=== PATIENT | male | born 1950 | race Caucasian/White ===

== ENCOUNTER 2018-05-17 11:08 | Inpatient (IN) | payer MEDICARE ==
[2018-05-17 11:58] LABS: Basophils # (A) 0.1 k/uL (0-0.2); Basophils % (A) 1 %; Eosinophils # (A) 0.1 k/uL (0-0.7); Eosinophils % (A) 1 %; HCT 52.8 % (39.0-53.0); HGB 17.5 gm/dL (13.0-17.5); Lymphocytes # (A) 2.3 k/uL (1.0-4.8); Lymphocytes % (A) 22 %; MCH 30.6 pg (25.0-35.0); MCHC 33.2 g/dL (31.0-37.0); MCV 92.3 fL (80.0-100.0); Mean Platelet Volume 8.4; Monocytes # (A) 0.5 k/uL (0-1.0); Monocytes % (A) 5 %; Neutrophils # (A) 7.5 k/uL (1.3-7.7); Neutrophils % (A) 70 %; Platelet Count 108 k/uL (150-450); RBC 5.72 m/uL (4.30-5.90); RDW 13.2 % (11.5-15.5); WBC 10.7 k/uL (3.8-10.6)
--- NOTE | 2018-05-17 12:02 | ED ---
General Adult HPI - General Chief complaint: Chest Pain Stated complaint: CHEST PAIN, LEG HEAVY, DIZZINESS Source: patient, RN notes reviewed, old records reviewed Mode of arrival: ambulatory Limitations: no limitations - History of Present Illness Initial comments: 68-year-old male patient with past medical history of osteoarthritis presents to ED after seeing his primary care physician today, Dr. Pettit. Patient states that the morning of 05/16 he woke up with chest pain. Patient states that the chest pain was located under his left pectoral and substernal region and felt like a pressure - pain did not radiate. The pressure improved with rest. Patient also states he had some shortness of breath. He describes the shortness of breath as he was, "breathing, but I felt as if I could not get enough air in." Patient also states that his right leg felt "heavy" but he was able to ambulate. Patient states that the symptoms lasted for approximately 4 hours. And afterwards he was able to continue with his day, activities of daily life. The symptoms have not returned. Patient states that he went to see his primary care physician today. The PCP was concerned about the possibility of a pulmonary embolism. Patient was sent to hospital with order of a CT pulmonary angiography, kidney function tests. Patient states that he is currently asymptomatic - not having active chest pain or SOB. Systemic: Pt denies fatigue, myalgia, fever/chills, rash. Pt denies weakness, night sweats, weight loss. Neuro: Pt denies headache, visual disturbances, syncope or pre-syncope. HEENT: Pt denies ocular discharge or irritation, otalgia, rhinorrhea, pharyngitis or notable lymphadenopathy. Abdominal/GI: Pt denies abdominal pain, n/v/d. : Pt denies dysuria, burning w/ urination, frequency/urgency. Denies new onset urinary or bowel incontinence. MSK: Pt denies myalgia, loss of strength or function in extremities. - Related Data Home Medications Medication Instructions Recorded Confirmed Meloxicam [Mobic] 15 mg PO DAILY 08/26/14 05/17/18 Allergies Allergy/AdvReac Type Severity Reaction Status Date / Time No Known Allergies Allergy Verified 05/17/18 12:09 Review of Systems ROS Statement: Those systems with pertinent positive or pertinent negative responses have been documented in the HPI. ROS Other: All systems not noted in ROS Statement are negative. Past Medical History Past Medical History: Osteoarthritis (OA) History of Any Multi-Drug Resistant Organisms: None Reported Past Surgical History: Hernia Repair Additional Past Surgical History / Comment(s): fran cataract- with lens implants , colonoscopy, torn retina repaired right eye Past Anesthesia/Blood Transfusion Reactions: No Reported Reaction Past Psychological History: Anxiety Smoking Status: Former smoker Past Alcohol Use History: None Reported Past Drug Use History: None Reported - Past Family History Father Family Medical History: No Reported History Mother Family Medical History: Cancer Additional Family Medical History / Comment(s): Mother of lung cancer. General Exam - General Exam Comments Initial Comments: Constitutional: NAD, AOX3, Pt has pleasant affect. HEENT: NC/AT, trachea midline, neck supple, no lymphadenopathy. Posterior pharynx non erythematous, without exudates. External ears appear normal, without discharge. Mucous membranes moist. Eyes PERRLA, EOM intact. There is no scleral icterus. No pallor noted. Cardiopulmonary: RRR, no murmurs, rubs or gallops, no JVD noted. Lungs CTAB in anterior and posterior garcia. No peripheral edema. Anterior chest wall nontender to palpation. Abdominal exam: Abdomen soft and non-distended. Abdomen non-tender to palpation in all 4 quadrants. Bowel sounds active in LLQ. No hepatosplenomegaly. Neuro: CN II-XII intact. MSK: Heel to toe walking intact. Psoas and quadricept strength 5/5 bilaterally. Patellar reflex and achillies 2/4 bilaterally. RLE slightly more edematous than left but patient states is at baseline secondary to an injury sustained approximately 30 years ago. Right lower extremity non-erythematous. Posterior tibialis and dorsalis pedis pulse +2 bilaterally. Posterior nontender to palpation bilaterally. Homans sign negative. Popliteal region nontender to palpation bilaterally. Limitations: no limitations Course Vital Signs 05/17/18 05/17/18 05/17/18 11:11 12:12 15:09 Temperature 97.4 F L Pulse Rate 98 78 78 Respiratory 20 Rate Blood Pressure 113/77 112/83 127/94 O2 Sat by Pulse 93 L 97 99 Oximetry 05/17/18 05/17/18 16:30 17:10 Temperature Pulse Rate 82 79 Respiratory 25 H Rate Blood Pressure 106/81 107/69 O2 Sat by Pulse 97 96 Oximetry Medical Decision Making - Medical Decision Making 68-year-old male patient presents to ED after having complained of chest pain, shortness of breath yesterday morning. Patient states that the symptoms had resolved and he feels as if he is at baseline now. Patient was seen by his PCP earlier this morning, sent to ED in order to receive CT pulmonary angiography. Patient physical exam did not reveal acute pathology. Cardiopulmonary exam within normal limitsregular rate and rhythm, lungs CTAP in anterior and posterior garcia, no peripheral edema or JVD. EKG did not reveal acute ischemia , no significant changes from old EKG. Laboratory investigations including, CBC , CMP, BNP, troponin were initiated. CT pulmonary angiography ordered. Patient started on oxygen and telemetry. Cardiac enzymes indicated elevated BNP , troponin, CK-MB. Patient was diagnosed with NSTEMI and started on heparin. CT pulmonary angiography displayed pulmonary emboli, no right heart strain. Spoke with pharmacist Germain Guillory who assisted in transitioning patient to appropriate high-dose heparin for PE. Pt was started on ACS protocol and admitted to ICU. Case discussed with Dr. Velez. - Lab Data Result diagrams: 05/17/18 11:01 05/17/18 11:01 Lab Results 05/17/18 05/17/18 05/17/18 Range/Units 11:01 11:01 11:01 WBC 10.7 H (3.8-10.6) k/uL RBC 5.72 (4.30-5.90) m/uL Hgb 17.5 (13.0-17.5) gm/dL Hct 52.8 (39.0-53.0) % MCV 92.3 (80.0-100.0) fL MCH 30.6 (25.0-35.0) pg MCHC 33.2 (31.0-37.0) g/dL RDW 13.2 (11.5-15.5) % Plt Count 108 L (150-450) k/uL Neutrophils % 70 % Lymphocytes % 22 % Monocytes % 5 % Eosinophils % 1 % Basophils % 1 % Neutrophils # 7.5 (1.3-7.7) k/uL Lymphocytes # 2.3 (1.0-4.8) k/uL Monocytes # 0.5 (0-1.0) k/uL Eosinophils # 0.1 (0-0.7) k/uL Basophils # 0.1 (0-0.2) k/uL PT (9.0-12.0) sec INR (<1.2) APTT (22.0-30.0) sec Sodium 143 (137-145) mmol/L Potassium 4.4 (3.5-5.1) mmol/L Chloride 108 H (98-107) mmol/L Carbon Dioxide 25 (22-30) mmol/L Anion Gap 10 mmol/L BUN 31 H (9-20) mg/dL Creatinine 1.17 (0.66-1.25) mg/dL Est GFR (CKD-EPI)AfAm 75 (>60 ml/min/1.73 sqM) Est GFR (CKD-EPI)NonAf 65 (>60 ml/min/1.73 sqM) Glucose 136 H (74-99) mg/dL Calcium 9.1 (8.4-10.2) mg/dL Magnesium 2.2 (1.6-2.3) mg/dL Total Bilirubin 1.1 (0.2-1.3) mg/dL AST 37 (17-59) U/L ALT 33 (21-72) U/L Alkaline Phosphatase 73 (38-126) U/L Total Creatine Kinase 205 H (55-170) U/L CK-MB (CK-2) 5.0 H (0.0-2.4) ng/mL CK-MB (CK-2) Rel Index 2.4 Troponin I 1.180 H* (0.000-0.034) ng/mL NT-Pro-B Natriuret Pep pg/mL Total Protein 7.7 (6.3-8.2) g/dL Albumin 4.5 (3.5-5.0) g/dL 05/17/18 05/17/18 Range/Units 11:01 11:01 WBC (3.8-10.6) k/uL RBC (4.30-5.90) m/uL Hgb (13.0-17.5) gm/dL Hct (39.0-53.0) % MCV (80.0-100.0) fL MCH (25.0-35.0) pg MCHC (31.0-37.0) g/dL RDW (11.5-15.5) % Plt Count (150-450) k/uL Neutrophils % % Lymphocytes % % Monocytes % % Eosinophils % % Basophils % % Neutrophils # (1.3-7.7) k/uL Lymphocytes # (1.0-4.8) k/uL Monocytes # (0-1.0) k/uL Eosinophils # (0-0.7) k/uL Basophils # (0-0.2) k/uL PT 10.8 (9.0-12.0) sec INR 1.1 (<1.2) APTT 24.4 (22.0-30.0) sec Sodium (137-145) mmol/L Potassium (3.5-5.1) mmol/L Chloride (98-107) mmol/L Carbon Dioxide (22-30) mmol/L Anion Gap mmol/L BUN (9-20) mg/dL Creatinine (0.66-1.25) mg/dL Est GFR (CKD-EPI)AfAm (>60 ml/min/1.73 sqM) Est GFR (CKD-EPI)NonAf (>60 ml/min/1.73 sqM) Glucose (74-99) mg/dL Calcium (8.4-10.2) mg/dL Magnesium (1.6-2.3) mg/dL Total Bilirubin (0.2-1.3) mg/dL AST (17-59) U/L ALT (21-72) U/L Alkaline Phosphatase (38-126) U/L Total Creatine Kinase (55-170) U/L CK-MB (CK-2) (0.0-2.4) ng/mL CK-MB (CK-2) Rel Index Troponin I (0.000-0.034) ng/mL NT-Pro-B Natriuret Pep 3260 pg/mL Total Protein (6.3-8.2) g/dL Albumin (3.5-5.0) g/dL Disposition Clinical Impression: NSTEMI (non-ST elevated myocardial infarction), Pulmonary embolism Disposition: ADMITTED IP TO THIS HOSP Condition: Good Decision Date: 05/17/18 Decision Time: 12:56 - Out of Hospital Transfer - Req. Specs Out of Hospital Transfer - Requested Specifics: Adult ICU (NSTEMI, PE)
[2018-05-17 12:07] LABS: Albumin 4.5 g/dL (3.5-5.0); Calcium 9.1 mg/dL (8.4-10.2); Magnesium 2.2 mg/dL (1.6-2.3); Potassium 4.4 mmol/L (3.5-5.1); Total Bilirubin 1.1 mg/dL (0.2-1.3); Total Protein 7.7 g/dL (6.3-8.2)
[2018-05-17 12:14] LABS: INR 1.1 (<1.2); Partial Thromboplastin Time 24.4 sec (22.0-30.0); Prothrombin Time 10.8 sec (9.0-12.0)
[2018-05-17 12:40] LABS: Troponin I 1.18 ng/mL (0.000-0.034)
[2018-05-17] MEDS ORDERED: NITROGLYCERIN SL TABS 0.4 MG TAB SUBLINGUAL PRN (12:46)
[2018-05-17] MEDS ORDERED: HEPARIN SODIUM,PORCINE 5,000 UNIT/ML 1 ML VIAL IV ONE ×2 (12:46→14:04)
[2018-05-17] MEDS ORDERED: ASPIRIN 81 MG PO STA (12:46)
[2018-05-17] MEDS ORDERED: HEPARIN SOD,PORK IN 0.45% NACL 25,000 UNIT in 0.45% NACL 1 500ML.BAG IV SCH (13:00)
--- NOTE | 2018-05-17 13:19 | CT ---
EXAMINATION TYPE: CT angio chest DATE OF EXAM: 05/17/2018 COMPARISON: None HISTORY: chest pain, RT leg weakness CT DLP: 399.5 mGycm CONTRAST: CT chest with contrast and 3D reconstruction with MIP imaging is performed with IV Contrast, patient injected with 100 mL of Isovue 300. Contrast-enhanced CT of the chest was performed through the course of the pulmonary arteries with myla g and mediastinal window settings submitted. 3D reconstruction with MIP imaging was also performed. PULMONARY ARTERIES: Moderate thrombus noted left lower lobe primary and secondary branches. A lesser extent thrombus is seen within the primary and secondary branches of the left upper lobe, right upper lobe and right lower lobe. No evidence for sagittal component. No evidence for right heart strain. LUNGS: Mild emphysematous changes noted. The lungs are clear and free of infiltrate. No evidence for atelectasis. No pulmonary nodule or mass is detected. No pleural effusion. MEDIASTINUM: Thoracic aorta is of normal caliber,however, evaluation is limited given timing of the contrast bolus. If there is concern for thoracic aortic pathology consider MARCELINO. Correlate clinicall y . The heart is not enlarged. No evidence for mediastinal mass. No mediastinal lymph nodes greater than 1cm. HILAR STRUCTURES: No evidence for mass. No hilar lymph nodes greater than 1 cm. UPPER ABDOMEN: No significant abnormality is seen. IMPRESSION: 1. Findings compatible with pulmonary embolism.
[2018-05-17] MEDS ORDERED: HEPARIN SODIUM,PORCINE 5,000 UNIT/ML 1 ML VIAL IV PRN (14:04)
[2018-05-17] MEDS: HEPARIN SOD,PORK IN 0.45% NACL 25,000 UNIT in 0.45% NACL 1 500ML.BAG IV SCH (14:19)
--- NOTE | 2018-05-17 14:56 | CONS ---
CONSULTATION Mr. Felton is a 68-year-old male with no prior cardiac history who yesterday started to become quite dyspneic, having chest discomfort, dizzy and having weakness in the leg. Because of that, he came into the emergency room and was subsequently evaluated. In the emergency room, he underwent CT scan of the chest that revealed evidence of pulmonary embolism and moderate size involving the left lower lobe and secondary branch and to less extent to the left upper lobe and the right upper and lower lobe. According to the report, there was no evidence of right heart strain. Patient is not very active physically, has no exertional chest pain, denies any tightness in the chest on a regular basis. He has some peripheral edema on and off, but he denies any recent injury or increasing edema. He denies any recent surgery. He has no PND, orthopnea, or peripheral edema. No history of arrhythmia. His coronary risk factors are remarkable for remote history of smoking. He is nondiabetic. No documented hypertension or hyperlipidemia. REVIEW OF SYSTEMS: RESPIRATORY SYSTEM: He had the recent dyspnea, no history of obstructive lung disease. GI SYSTEM; No recent GI bleed. No peptic ulcer disease. SYSTEM: No dysuria or hematuria nervous system no history of stroke or seizure. PHYSICAL EXAMINATION: He is a 68-year-old male, alert, oriented, in no apparent distress. Blood pressure 112/80 with a heart rate in the 70s. HEAD: Normocephalic. EYES: Sclerae nonicteric, NECK: Good upstroke, no bruit, no jugular venous distension. LUNGS: Clear to auscultation. HEART: Regular rate and rhythm. S1, S2. No S3. No S4. No murmur or rub. ABDOMEN: Soft, nontender. Positive bowel sounds. No organomegaly. EXTREMITIES: Varicosities noted bilaterally. Chronic skin changes on the right side with 1+ edema. Homans signs negative. LAB DATA: Revealed a troponin of 1.1. NT proBNP of 3260. BUN and creatinine 31 and 1.17, potassium 4.4, hemoglobin of 17.5, white blood cell of 10.7. IMPRESSION: 1. Acute pulmonary embolism with associated dyspnea and chest discomfort. 2. Varicosities with edema on the right side, rule out right deep venous thrombosis. 3. Elevation of troponin related to his pulmonary embolism. RECOMMENDATION: We will obtain echocardiogram with Doppler. Will review his EKG. Patient will be started on intravenous heparin, subsequently switched to oral anticoagulation. Depending on his progress, further recommendation will be made. Thank you for this consult. Kenton follow with you. LJ / MILDRED: [id number] /
--- NOTE | 2018-05-17 15:27 | US ---
EXAMINATION TYPE: US venous doppler duplex LE DATE OF EXAM: 05/17/2018 3:14 PM COMPARISON: CT angio chest CLINICAL HISTORY: dvt. Right leg swelling x 1 week with TYREE. SIDE PERFORMED: Bilateral TECHNIQUE: The lower extremity deep venous system is examined utilizing real time linear array sonog alfred with graded compression, doppler sonography and color-flow sonography. VESSELS IMAGED: Common Femoral Vein Deep Femoral Vein Greater Saphenous Vein * Femoral Vein Popliteal Vein Small Saphenous Vein * Proximal Calf Veins (* superficial vessels) Right Leg: Is Positive for DVT Right CFV, Femoral Vein throughout, upper and mid Popliteal Vein Left Leg: Wall echoes are noted in mid and lower left Femoral Vein but color flow patency is seen an d compression is noted IMPRESSION: 1. Right lower extremity positive for deep venous thrombosis. 2. Mild Nonobstructive thrombus within the left lower extremity is not excluded. A Red level critical message alert has been initiated for Renetta Cortes via the [facility] Results System on 05/17/2018 3:25 PM. This message alert has been sent to Renetta Cortes via the preferences provided by the clinician for the receipt of Radiology Critical Findings. Message ID [id number].
--- NOTE | 2018-05-17 16:49 | P.HPIM ---
History of Present Illness 68-year-old pleasant gentleman came to ER with complaints of right groin pain which started yesterday while walking sharp pain and patient started having chest pain after that along with shortness of breath patient chest pain at the time was nonpruritic in nature patient the doesn't have any more chest pain at this time patient is found to have elevated troponin also had a CAT scan of the chest which showed extensive pulmonary embolism involving both the lungs upper and lower lung garcia. Patient is still complaining of some shortness of breath when he gets and ambulates. Patient denied any significant medical problems except for low back pain. Patient denied any recent travel denied any family history of pulmonary embolism. Patient doesn't smoke. Patient is bit obese. Patient appears to have unprecipitated DVT. Patient is found to have DVT in the right lower extremity and patient was started on a high intensity heparin. Patient is hemodynamically stable at this point of time saturating well on 2 L of oxygen. Patient denied any significant weight loss. Review of Systems REVIEW OF SYSTEMS: CONSTITUTIONAL: No fever, no malaise, no fatigue. HEENT: No recent visual problems or hearing problems. Denied any sore throat. CARDIOVASCULAR: No chest pain, orthopnea, PND, no palpitations, no syncope. PULMONARY: No shortness of breath, no cough, no hemoptysis. GASTROINTESTINAL: No diarrhea, no nausea, no vomiting, no abdominal pain. Normoactive bowel sounds. NEUROLOGICAL: No headaches, no weakness, no numbness. HEMATOLOGICAL: Denies any bleeding or petechiae. GENITOURINARY: Denies any burning micturition, frequency, or urgency. MUSCULOSKELETAL/RHEUMATOLOGICAL: Denies any joint pain, swelling, or any muscle pain. ENDOCRINE: Denies any polyuria or polydipsia. The rest of the 14-point review of systems is negative. 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-gets injections in lesions and uses other medications, diverticulosis, colon polyp-benign History of Any Multi-Drug Resistant Organisms: None Reported Past Surgical History: Hernia Repair Additional Past Surgical History / Comment(s): fran cataract- with lens implants , colonoscopy, torn retina repaired right eye Past Anesthesia/Blood Transfusion Reactions: No Reported Reaction Past Psychological History: Anxiety Smoking Status: Former smoker Past Alcohol Use History: None Reported Past Drug Use History: None Reported - Past Family History Mother Family Medical History: Cancer Additional Family Medical History / Comment(s): Mother of lung cancer. Father Family Medical History: No Reported History Additional Family Medical History / Comment(s): Asbestosis. of CHF. Medications and Allergies Home Medications Medication Instructions Recorded Confirmed Type Meloxicam [Mobic] 15 mg PO DAILY 08/26/14 05/17/18 History Allergies Allergy/AdvReac Type Severity Reaction Status Date / Time No Known Allergies Allergy Verified 05/17/18 12:09 Physical Exam Vitals: Vital Signs Temp Pulse Resp BP Pulse Ox 05/17/18 15:09 78 127/94 99 05/17/18 12:12 78 112/83 97 05/17/18 11:11 97.4 F L 98 20 113/77 93 L Intake and Output 05/17/18 05/17/18 05/17/18 06:59 14:59 22:59 Other: Weight 111.13 kg PHYSICAL EXAMINATION: GENERAL: The patient is alert and oriented x3, not in any acute distress. Well developed, well nourished. HEENT: Pupils are round and equally reacting to light. EOMI. No scleral icterus. No conjunctival pallor. Normocephalic, atraumatic. No pharyngeal erythema. No thyromegaly. CARDIOVASCULAR: S1 and S2 present. No murmurs, rubs, or gallops. PULMONARY: Chest is clear to auscultation, no wheezing or crackles. ABDOMEN: Soft, nontender, nondistended, normoactive bowel sounds. No palpable organomegaly. MUSCULOSKELETAL: No joint swelling or deformity. EXTREMITIES: No cyanosis, clubbing, or pedal edema. NEUROLOGICAL: Gross neurological examination did not reveal any focal deficits. SKIN: No rashes. Results CBC & Chem 7: 05/17/18 11:05/17/18 11: Labs: Abnormal Lab Results - Last 24 Hours (Table) 05/17/18 05/17/18 05/17/18 Range/Units 11:01 11: 11: WBC 10.7 H (3.8-10.6) k/uL Plt Count 108 L (150-450) k/uL Chloride 108 H (98-107) mmol/L BUN 31 H (9-20) mg/dL Glucose 136 H (74-99) mg/dL Total Creatine Kinase 205 H (55-170) U/L CK-MB (CK-2) 5.0 H (0.0-2.4) ng/mL Troponin I 1.180 H* (0.000-0.034) ng/mL Thrombosis Risk Factor Assmnt - Choose All That Apply Any of the Below Risk Factors Present?: Yes Each Factor Represents 1 point: Obesity (BMI >25) Other Risk Factors: Yes Each Risk Factor Represents 2 Points: Age 61-74 years Each Risk Factor Represents 3 Points: History of DVT/PE Other congenital or acquired thrombophilia - If yes, enter type in comment: No Thrombosis Risk Factor Assessment Total Risk Factor Score: 6 Thrombosis Risk Factor Assessment Level: High Risk Assessment and Plan Plan: Bilateral pulmonary embolism: Patient was started on IV heparin will switch her to her anti-coagulation tomorrow. Patient is hemodynamically stable. Patient had a DVT in the right lower extremity which is in on precipitated DVT many given anticoagulation for rest of his life. We will make sure patient has is appropriate outpatient scan cancer screening procedures -Elevated troponin: Nonspecific ST-T wave changes and elevated troponin secondary to pulmonary embolism patient is on high-dose of heparin was evaluated by cardiology patient probably has type II non-ST elevation myocardial infarction from right ventricular strain.. -Right lower extremity DVT -Chronic low back pain -Obesity: Counseling was provided
[2018-05-17 19:15] LABS: Creatine Kinase MB 3.4 ng/mL (0.0-2.4)
[2018-05-17 19:27] LABS: Troponin I 0.736 ng/mL (0.000-0.034)
[2018-05-17 23:57] LABS: Creatine Kinase MB 2.5 ng/mL (0.0-2.4)
[2018-05-18] LABS: Troponin I 0.521 ng/mL (0.000-0.034)
[2018-05-18] MEDS: HEPARIN SOD,PORK IN 0.45% NACL 25,000 UNIT in 0.45% NACL 1 500ML.BAG IV SCH (02:50)
[2018-05-18 03:39] LABS: Anion Gap 9 mmol/L; Blood Urea Nitrogen 29 mg/dL (9-20); Calcium 8.4 mg/dL (8.4-10.2); Carbon Dioxide 20 mmol/L (22-30); Chloride 110 mmol/L (98-107); Cholesterol 149 mg/dL (<200); Glucose 101 mg/dL (74-99); HDL Cholesterol 40 mg/dL (40-60); LDL Cholesterol,Calculated 89 mg/dL (0-99); Potassium 4.2 mmol/L (3.5-5.1); Sodium 139 mmol/L (137-145); Triglycerides 98 mg/dL (<150)
[2018-05-18] MEDS: ASPIRIN 325 MG TAB PO SCH (08:02)
--- NOTE | 2018-05-18 09:09 | P.DS ---
Providers Date of admission: 05/17/18 13:28 Attending physician: Lubna Vasquez Consults: 05/17/18 12:51 Consult Physician Urgent Consulting Provider: [facility] Consult Reason/Comments: NSTEMI Do you want consulting provider notified?: Yes Primary care physician: Camille Banks [facility] Course: 68-year-old that came in with right groin pain and the chest pain which are as of breath found to have pulmonary embolism bilateral patient also has elevated troponin secondary to pulmonary embolism which are trending down. If cleared by cardiology patient will be discharged. Will ablate the patient today make sure his vitals are stable lodge and saturations are not dropping before discharge. Patient had all his screening procedures for cancers. Patient denied any weight loss. Patient has an unprecipitated DVT and pulmonary embolism, may need to be on anticoagulation for rest of his life. We will check with insurance regarding Eliquis coverage. PHYSICAL EXAMINATION: GENERAL: The patient is alert and oriented x3, not in any acute distress. Well developed, well nourished. HEENT: Pupils are round and equally reacting to light. EOMI. No scleral icterus. No conjunctival pallor. Normocephalic, atraumatic. No pharyngeal erythema. No thyromegaly. CARDIOVASCULAR: S1 and S2 present. No murmurs, rubs, or gallops. PULMONARY: Chest is clear to auscultation, no wheezing or crackles. ABDOMEN: Soft, nontender, nondistended, normoactive bowel sounds. No palpable organomegaly. MUSCULOSKELETAL: No joint swelling or deformity. EXTREMITIES: No cyanosis, clubbing, or pedal edema. NEUROLOGICAL: Gross neurological examination did not reveal any focal deficits. SKIN: No rashes. Assessment and Plan Plan: Bilateral pulmonary embolism: Management as mentioned above -Elevated troponin: Nonspecific ST-T wave changes and elevated troponin secondary to pulmonary embolism . -Right lower extremity DVT -Chronic low back pain -Obesity: Counseling was provided Patient Condition at Discharge: Good Plan - Discharge Summary Discharge Rx Participant: No New Discharge Prescriptions: New Apixaban [Eliquis] 10 mg PO BID #14 tablet Apixaban [Eliquis] 5 mg PO BID #60 tab No Action Meloxicam [Mobic] 15 mg PO DAILY Discharge Medication List Meloxicam [Mobic] 15 mg PO DAILY 08/26/14 [History] Apixaban [Eliquis] 5 mg PO BID #60 tab 05/18/18 [Rx] Apixaban [Eliquis] 10 mg PO BID #14 tablet 05/18/18 [Rx] Follow up Appointment(s)/Referral(s): Camille Banks DO [Primary Care Provider] - 3 Days Discharge Disposition: HOME SELF-CARE
[2018-05-18] MEDS: APIXABAN 5 MG TAB PO SCH ×2 (10:17→20:18)
--- NOTE | 2018-05-18 15:17 | P.PN ---
Subjective Progress Note Date: 05/18/18 Principal diagnosis: PE This is a pleasant 68-year-old gentleman with no prior cardiac history who presented to the emergency department after becoming quite dyspneic, complaining of chest discomfort, dizziness and weakness in his legs. Computed tomography scan on admission showed evidence of pulmonary embolism with moderate size thrombus involving the left lower lobe primary and secondary branch and to less extent to the left upper lobe and right upper and lower lobes. According to that report there is no evidence of right heart strain. She denies recent travel. Last surgery was about a year ago. Had a colonoscopy about 2 years ago that showed some polyps. He's noticed some lower extremity edema off and on over the past 30 years. He has no PND, orthopnea. No history of arrhythmia. History of smoking and smokeless tobacco use. He is not diabetic and no documented history of hypertension or hyperlipidemia. Laboratory evaluation showed elevated troponins and NT proBNP. He underwent echocardiogram yesterday results are not currently available to me. Objective - Vital Signs Vital signs: Vital Signs Temp 97 F L 05/18/18 11:29 Pulse 86 05/18/18 11:29 Resp 18 05/18/18 11:29 BP 135/89 05/18/18 11:29 Pulse Ox 91 L 05/18/18 11:29 Intake & Output 05/17/18 05/18/18 05/18/18 18:59 06:59 18:59 Intake Total 880.751 600 Balance 880.751 600 Weight 111.13 kg 111 kg Intake: Intake, IV Titration 640.751 Amount Heparin Sod,Pork in 0.45% 640.751 NaCl 25,000 unit In 0.45 % NaCl 1 500ml.bag @ 18 UNITS/KG/HR 40 mls/hr IV .[id number] SHIVANI Rx#: [id number] Oral 240 600 Other: # Voids 1 - Exam PHYSICAL EXAMINATION: HEENT: Head is atraumatic, normocephalic. Pupils equal, round. Neck is supple. There is no elevated jugular venous pressure. HEART EXAMINATION: Heart sounds regular, S1 and S2 normal. No murmur or gallop heard. CHEST EXAMINATION: Lungs are clear to auscultation and precussion. No chest wall tenderness is noted on palpation or with deep breathing. ABDOMEN: Soft, nontender. Bowel sounds are heard. No organomegaly noted. EXTREMITIES: 2+ peripheral pulses with evidence of right lower extremity edema with chronic skin changes noted. NEUROLOGIC patient is awake, alert and oriented x3. . - Labs CBC & Chem 7: 05/17/18 11:01 05/18/18 02:47 Labs: Abnormal Lab Results - Last 24 Hours (Table) 05/17/18 05/17/18 05/17/18 Range/Units 18:30 18:30 22:35 APTT >200.0 H* (22.0-30.0) sec Chloride (98-107) mmol/L Carbon Dioxide (22-30) mmol/L BUN (9-20) mg/dL Glucose (74-99) mg/dL CK-MB (CK-2) 3.4 H 2.5 H (0.0-2.4) ng/mL Troponin I 0.736 H* 0.521 H* (0.000-0.034) ng/mL 05/18/18 05/18/18 Range/Units 02:47 02:47 APTT 115.1 H* (22.0-30.0) sec Chloride 110 H (98-107) mmol/L Carbon Dioxide 20 L (22-30) mmol/L BUN 29 H (9-20) mg/dL Glucose 101 H (74-99) mg/dL CK-MB (CK-2) (0.0-2.4) ng/mL Troponin I (0.000-0.034) ng/mL Assessment and Plan Assessment: #1 acute pulmonary embolism, unprovoked, high intermediate risk with elevated NT proBNP and troponins #2 right lower extremity DVT #3 troponin elevation, likely secondary to oxygen supply demand mismatch related to PE Plan: From cardiology perspective, we will continue to monitor the patient over the weekend. We will obtain a PSA and a computed tomography scan of abdomen and pelvis. Will need to rule out malignancy. We'll continue to monitor the patient for a further recommendations accordingly. ALLEY TENDER note has been reviewed, I agree with a documented findings and plan of care. Patient was seen and examined.
--- NOTE | 2018-05-18 15:43 | ECHOF ---
Referral Reason:PE, elevated troponin MEASUREMENTS -------- HEIGHT: 152.4 cm WEIGHT: 111.1 kg BP: RVIDd: 5.1 cm (< 3.3) IVSd: 1.3 cm (0.6 - 1.1) LVIDd: 4.4 cm (3.9 - 5.3) LVPWd: 1.4 cm (0.6 - 1.1) IVSs: 1.9 cm LVIDs: 3.3 cm LVPWs: 1.5 cm LA Diam: 3.5 cm (2.7 - 3.8) Ao Diam: 3.9 cm (2.0 - 3.7) AV Cusp: 2.2 cm (1.5 - 2.6) LA Diam: 4.1 cm (2.7 - 3.8) MV EXCURSION: 16.963 mm (> 18.000) MV EF SLOPE: 101 mm/s (70 - 150) EPSS: 1.7 cm MV E Los: 0.33 m/s MV DecT: 320 ms MV A Los: 0.77 m/s MV E/A Ratio: 0.42 RAP: 10.00 mmHg RVSP: 60.42 mmHg FINDINGS -------- Sinus rhythm. This was a techncally difficult study with suboptimal views, , Lumason utilized for enhancement of im ages. The left ventricular size is normal. There is mild concentric left ventricular hypertrophy. Overa ll left ventricular systolic function is low-normal with, an EF between 50 - 55 %. The right ventricle is severely enlarged. The left atrial size is normal. The right atrial size is normal. Trace amount of aortic regurgitation. Mild mitral annular calcification present. Mild mitral regurgitation is present. Trace tricuspid regurgitation present. There is moderate pulmonary hypertension. The right ventri cular systolic pressure, as measured by Doppler, is 60.42mmHg. There is no pulmonic regurgitation present. The aortic root is dilated measuring 4.1CM}. There is no pericardial effusion. 5.0mg OF Lumason UTLIZED: 2 OR MORE WALL SEGMENTS NOT VISUALIZED. CONCLUSIONS -------- 1. This was a techncally difficult study with suboptimal views, , Lumason utilized for enhancement of images. 2. The left ventricular size is normal. 3. There is mild concentric left ventricular hypertrophy. 4. Overall left ventricular systolic function is low-normal with, an EF between 50 - 55 %. 5. The right ventricle is severely enlarged. 6. The left atrial size is normal. 7. The right atrial size is normal. 8. The aortic root is dilated measuring 3.9cm. 9. 5.0mg OF Lumason UTLIZED: 2 OR MORE WALL SEGMENTS NOT VISUALIZED. 10. Mild mitral annular calcification present. 11. Mild mitral regurgitation is present. 12. Trace tricuspid regurgitation present. 13. There is moderate pulmonary hypertension. 14. The right ventricular systolic pressure, as measured by Doppler, is 60.42mmHg. 15. There is no pulmonic regurgitation present. 16. There is no pericardial effusion. PHYSICIAN NEONATOLOGY: Dionna Pinzon RDCS
[2018-05-19] MEDS: IOPAMIDOL-300 CONTRAST 30 ML VIAL (ORAL USE) PO PRN ×2 (08:30→09:37)
--- NOTE | 2018-05-19 10:40 | CT ---
EXAMINATION TYPE: CT abdomen pelvis wo/w con DATE OF EXAM: 05/19/2018 HISTORY: DVT/PE, r/o malignancy HISTORY: DVT/PE. R/o malignancy REFERENCE: NONE CT DLP: 2224.6 mGy Automated exposure control for dose reduction was used. TECHNIQUE: Helical acquisition through the abdomen and pelvis was obtained following the oral ingesti on of with Oral Contrast and following intravenous administration of 100 mL of Isovue 300. The data w as reformatted in axial, coronal and sagittal projections. FINDINGS: There is a calcified granuloma in the superior segment of the right lower lobe. Visualized portions of the lungs are otherwise clear. There is no pleural or pericardial fluid. The heart is no t enlarged. Within the abdomen, the liver, spleen and gallbladder are unremarkable. Both adrenal glands are normal. The pancreas is unremarkable. Both kidneys demonstrate function and appear morphologically normal. There is no significant retroperitoneal, iliac or inguinal adenopathy. The bladder is not distended. The bladder wall appears thickened but this is likely due to the lack o f distention There is some thickening of the mucosa of the sigmoid colon. There is no significant diverticular yi nge and there is no evidence of diverticulitis. The appendix is normal. Small bowel loops are unremarkable. There is no free fluid and no free air. There is an indirect inguinal hernia on the right containing fat only. There is degenerative disc disease, facet arthropathy and hypertrophic spondylosis within the spine. No bony destructive lesion is seen. IMPRESSION: 1. THICKENING OF THE SIGMOID COLON. PLEASE CORRELATE CLINICALLY FOR COLITIS. 2. 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 3. INDIRECT INGUINAL HERNIA ON THE RIGHT CONTAINING FAT ONLY. 4. DEGENERATIVE CHANGES WITHIN THE SPINE.
[2018-05-19] MEDS: APIXABAN 5 MG TAB PO SCH ×2 (10:48→20:44)
[2018-05-19] MEDS: ASPIRIN 325 MG TAB PO SCH (10:49)
--- NOTE | 2018-05-19 11:57 | P.PN ---
Subjective 68-year-old that came in with right groin pain and the chest pain which are as of breath found to have pulmonary embolism bilateral patient also has elevated troponin secondary to pulmonary embolism which are trending down. If cleared by cardiology patient will be discharged. Will ablate the patient today make sure his vitals are stable lodge and saturations are not dropping before discharge. Patient had all his screening procedures for cancers. Patient denied any weight loss. Patient has an unprecipitated DVT and pulmonary embolism, may need to be on anticoagulation for rest of his life. We will check with insurance regarding Eliquis coverage. 05/19/2018 Patient is clinically doing well patient had an abdominal CAT scan to see there is any suspicion lesions patient has elevated BNP and pain which is secondary to pulmonary embolism in the right carotid occlusive strain patient's echocardiogram showed CBC of January 2010 as strain. Cardiology is recommending one more day of monitoring considering his moderate risk or PE. She will be discharged on Eliquis [place] patient has significant swelling of the right leg for which we'll use and socks thigh-high Constitutional: Denied any fatigue denied any fever. Cardio vascular: denied any chest pain, palpitations Gastrointestinal denied any nausea vomiting Pulmonary: Denied any shortness of breath cough Neurologic denied any new focal deficits All inpatient medications were reviewed and appropriate changes in these medications as dictated in the interval history and assessment and plan. Objective - Vital Signs Vital signs: Vital Signs Temp 97.8 F 05/19/18 10:52 Pulse 69 05/19/18 10:52 Resp 18 05/19/18 10:52 BP 144/78 05/19/18 10:52 Pulse Ox 97 05/19/18 10:52 Intake & Output 05/18/18 05/19/18 05/19/18 18:59 06:59 18:59 Intake Total 840 240 240 Balance 840 240 240 Weight 108.1 kg Intake: Oral 840 240 240 Other: Voiding Method Toilet # Voids 1 1 - Exam PHYSICAL EXAMINATION: GENERAL: The patient is alert and oriented x3, not in any acute distress. Well developed, well nourished. HEENT: Pupils are round and equally reacting to light. EOMI. No scleral icterus. No conjunctival pallor. Normocephalic, atraumatic. No pharyngeal erythema. No thyromegaly. CARDIOVASCULAR: S1 and S2 present. No murmurs, rubs, or gallops. PULMONARY: Chest is clear to auscultation, no wheezing or crackles. ABDOMEN: Soft, nontender, nondistended, normoactive bowel sounds. No palpable organomegaly. MUSCULOSKELETAL: No joint swelling or deformity. EXTREMITIES: No cyanosis, clubbing, and has pedal edema right leg pitting NEUROLOGICAL: Gross neurological examination did not reveal any focal deficits. SKIN: No rashes. - Labs CBC & Chem 7: 05/17/18 11:01 05/18/18 02:47 Assessment and Plan Plan: Bilateral pulmonary embolism: Patient was started on IV heparin will switch her to her anti-coagulation tomorrow. Patient is hemodynamically stable. Patient had a DVT in the right lower extremity which is in on precipitated DVT many given anticoagulation for rest of his life. Patient had appropriate cancer screening procedures as an outpatient abdominal CAT scan did not show any significant abnormality except for some mild nonspecific thickening of the colon -Elevated troponin: Nonspecific ST-T wave changes and elevated troponin secondary to pulmonary embolism patient is on high-dose of heparin was evaluated by cardiology patient probably has type II non-ST elevation myocardial infarction from right ventricular strain.. Pulmonary hypertension secondary to right ventricular strain and acute secondary to acute pulmonary embolism -Right lower extremity DVT -Chronic low back pain -Obesity: Counseling was provided
[2018-05-19 21:17] VITALS: RESP 16
--- NOTE | 2018-05-20 01:38 | PN ---
PROGRESS NOTE DATE OF SERVICE: 05/19/2018. HISTORY: This patient was admitted with symptoms of shortness of breath. The patient has been diagnosed to have submassive pulmonary embolism with evidence of right ventricular strain and elevated troponin and BNP level. Patient is doing fairly well. He denies any orthopnea or PND. Patient does have some right leg swelling. suggestive of DVT. CT of the abdomen and pelvis was done. There was no definite evidence of any malignancy. PHYSICAL EXAMINATION: The patient's vital signs remain stable. Blood pressure is 144/78 mmHg, heart rate is 72 per minute, oxygen saturation is 97%. First and second heart sounds are normal. Lungs are clinically clear to auscultation and percussion. ASSESSMENT AND PLAN: We will continue the patient on Eliquis 10 mg b.i.d. and if the patient remains stable patient can be discharged home tomorrow. MMODL / IJN: [id number] /
[2018-05-20] MEDS: APIXABAN 5 MG TAB PO SCH (08:39)
[2018-05-20] MEDS: ASPIRIN 325 MG TAB PO SCH (08:39)
[2018-05-20 08:50] VITALS: BP 117/75; PULSE 77; TEMP 97.1
--- NOTE | 2018-05-20 12:45 | P.DS ---
Providers Date of admission: 05/17/18 13:28 Attending physician: Lubna Vasquez Consults: 05/17/18 12:51 Consult Physician Urgent Consulting Provider: [facility] Consult Reason/Comments: NSTEMI Do you want consulting provider notified?: Yes Primary care physician: Camille [facility] Course: 68-year-old that came in with right groin pain and the chest pain which are as of breath found to have pulmonary embolism bilateral patient also has elevated troponin secondary to pulmonary embolism which are trending down. If cleared by cardiology patient will be discharged. Will ablate the patient today make sure his vitals are stable lodge and saturations are not dropping before discharge. Patient had all his screening procedures for cancers. Patient denied any weight loss. Patient has an unprecipitated DVT and pulmonary embolism, may need to be on anticoagulation for rest of his life. We will check with insurance regarding Eliquis coverage. 05/19/2018 Patient is clinically doing well patient had an abdominal CAT scan to see there is any suspicion lesions patient has elevated BNP and pain which is secondary to pulmonary embolism in the right carotid occlusive strain patient's echocardiogram showed CBC of January 2010 as strain. Cardiology is recommending one more day of monitoring considering his moderate risk or PE. She will be discharged on Eliquis Dalton patient has significant swelling of the right leg for which we'll use compression socks thigh-high 05/20/2018 PHYSICAL EXAMINATION: GENERAL: The patient is alert and oriented x3, not in any acute distress. Well developed, well nourished. HEENT: Pupils are round and equally reacting to light. EOMI. No scleral icterus. No conjunctival pallor. Normocephalic, atraumatic. No pharyngeal erythema. No thyromegaly. CARDIOVASCULAR: S1 and S2 present. No murmurs, rubs, or gallops. PULMONARY: Chest is clear to auscultation, no wheezing or crackles. ABDOMEN: Soft, nontender, nondistended, normoactive bowel sounds. No palpable organomegaly. MUSCULOSKELETAL: No joint swelling or deformity. EXTREMITIES: No cyanosis, clubbing, and has pedal edema right leg pitting NEUROLOGICAL: Gross neurological examination did not reveal any focal deficits. SKIN: No rashes. Assessment and Plan Plan: Bilateral pulmonary embolism: Patient was started on IV heparin will switch her to her anti-coagulation tomorrow. Patient is hemodynamically stable. Patient had a DVT in the right lower extremity which is in on precipitated DVT many given anticoagulation for rest of his life. Patient had appropriate cancer screening procedures as an outpatient abdominal CAT scan did not show any significant abnormality except for some mild nonspecific thickening of the colon -Elevated troponin: Nonspecific ST-T wave changes and elevated troponin secondary to pulmonary embolism patient is on high-dose of heparin was evaluated by cardiology patient probably has type II non-ST elevation myocardial infarction from right ventricular strain.. Pulmonary hypertension secondary to right ventricular strain and acute secondary to acute pulmonary embolism -Right lower extremity DVT -Chronic low back pain -Obesity: Counseling was provided Patient Condition at Discharge: Good Plan - Discharge Summary Discharge Rx Participant: No New Discharge Prescriptions: New Apixaban [Eliquis] 10 mg PO BID #14 tablet Apixaban [Eliquis] 5 mg PO BID #60 tab No Action Meloxicam [Mobic] 15 mg PO DAILY Discharge Medication List Meloxicam [Mobic] 15 mg PO DAILY 08/26/14 [History] Apixaban [Eliquis] 5 mg PO BID #60 tab 05/18/18 [Rx] Apixaban [Eliquis] 10 mg PO BID #14 tablet 05/18/18 [Rx] Follow up Appointment(s)/Referral(s): Camille Banks DO [Primary Care Provider] - 05/23/18 8:40 am () Femi Riddle MD [STAFF PHYSICIAN] - 05/27/18 4:15 pm (sunday) Patient Instructions/Handouts: Pulmonary Embolism (DC), Deep Vein Thrombosis ( DC), Safe Use of Anticoagulants (DC) Activity/Diet/Wound Care/Special Instructions: ELIQUIS 10MG 2 X DAY (9 MORE DOSES) AND THEN SWITCH TO ELIQUIS 5MG 2 X DAY (DECREASED DOSE) START May Discharge Disposition: HOME SELF-CARE
== END 2018-05-20 12:03 | disposition home or self-care (01) | DRG 175 ==
LOC: EC 11:08 → UNDOADMIN 12:51 → 3SCARD 12:51
PROVIDERS: ADMIT Hospitalist; ATTEND Hospitalist
DX: I26.02 Saddle embolus of pulmonary artery with acute cor pulmonale (principal); I21.A1 Myocardial infarction type 2; I82.411 Acute embolism and thrombosis of right femoral vein; E66.9 Obesity, unspecified; I27.20 Pulmonary hypertension, unspecified; M54.5 Low back pain; Z68.33 Body mass index [BMI] 33.0-33.9, adult; Z96.1 Presence of intraocular lens; G89.29 Other chronic pain; M19.041 Primary osteoarthritis, right hand; M19.042 Primary osteoarthritis, left hand; M19.022 Primary osteoarthritis, left elbow; M19.021 Primary osteoarthritis, right elbow; M19.012 Primary osteoarthritis, left shoulder; M19.011 Primary osteoarthritis, right shoulder; M17.0 Bilateral primary osteoarthritis of knee; Z79.1 Long term (current) use of non-steroidal anti-inflammatories (NSAID); Z71.3 Dietary counseling and surveillance; Z98.42 Cataract extraction status, left eye; Z98.41 Cataract extraction status, right eye; Z87.891 Personal history of nicotine dependence; Z79.01 Long term (current) use of anticoagulants; Z80.1 Family history of malignant neoplasm of trachea, bronchus and lung; Z82.49 Family history of ischemic heart disease and other diseases of the circulatory system; Z86.010 Personal history of colon polyps
CPT/HCPCS: 36415; 71275; 74178; 80048; 80053; 80061; 82550; 82553; 83735; 83880; 84153; 84484; 85025; 85610; 85730; 93005; 93306; 93970; 96365; 96366; 96376; 99285

== ENCOUNTER → 2019-02-12 | Outpatient (CLI) | payer MEDICARE ==
--- NOTE | 2019-02-12 17:10 | CT ---
EXAMINATION TYPE: CT chest wo con DATE OF EXAM: 02/12/2019 COMPARISON: 05/17/2018 HISTORY: SOB, hx of PE CT DLP: 546.6 mGycm, Automated exposure control for dose reduction was used. CONTRAST: Performed injected with 0 mL of Isovue 300. TECHNIQUE: Axial images were obtained at 5 mm thick sections. Reconstructed images are reviewed on [employer] computer in the coronal plane. FINDINGS: Portion of the thyroid visualized is normal. There is a 0.7 cm calcified nodule within the posterior right midlung. This was present previously. S ome mild compressive atelectasis is within the dependent portions of the lungs. Very subtle nodule may be within the posterior periphery of the right lung measuring 0.4 cm. Series 4 image 39. No enlarged mediastinal or hilar adenopathy is evident. The ascending aorta diameter at the level o f the main pulmonary artery is 3.7 cm. The main pulmonary artery diameter at the bifurcation is 3.[address] sections are obtained through the upper abdomen. Abdomen is essentially unremarkable. IMPRESSIONS: 1. Tiny 0.4 cm peripheral nodule right midlung. Follow-up chest CT 6 months. 2. Stable calcification right mid posterior lung
== END | disposition home or self-care (01) ==
LOC: RADCTMAIN 15:32
PROVIDERS: ATTEND Internal Medicine Critical Care Medicine
DX: J98.4 Other disorders of lung (principal); R91.1 Solitary pulmonary nodule; I26.99 Other pulmonary embolism without acute cor pulmonale
CPT/HCPCS: 71250

== ENCOUNTER → 2022-02-09 | Outpatient (CLI) | payer MEDICARE ==
--- NOTE | 2022-02-09 16:23 | US ---
EXAMINATION TYPE: US venous doppler duplex LE DATE OF EXAM: 02/09/2022 4:10 PM COMPARISON: Bilateral venous ultrasound 2018 CLINICAL HISTORY: R22.42 R22.41 BILATERAL LEG SWELLING. Edema and pain HX of DVT on blood thinners. SIDE PERFORMED: Bilateral TECHNIQUE: The lower extremity deep venous system is examined utilizing real time linear array sonog alfred with graded compression, doppler sonography and color-flow sonography. VESSELS IMAGED: Common Femoral Vein Deep Femoral Vein Greater Saphenous Vein * Femoral Vein Popliteal Vein Small Saphenous Vein * Proximal Calf Veins (* superficial vessels) Right Leg: Hx of DVT flow seen but not completely compressible at CFV and GSV. Left Leg: Negative for DVT Grayscale, color doppler, spectral doppler imaging performed of the deep veins of the bilateral lower extremities. IMPRESSION: Suspect some chronic DVT in the right common femoral vein and greater saphenous vein. No acute DVT in the left lower extremity.
== END | disposition home or self-care (01) ==
LOC: RADUSWWP 15:29
PROVIDERS: ATTEND Internal Medicine Hematology & Oncology
DX: M79.662 Pain in left lower leg (principal); M79.661 Pain in right lower leg; R22.41 Localized swelling, mass and lump, right lower limb; R22.42 Localized swelling, mass and lump, left lower limb
CPT/HCPCS: 93970

== ENCOUNTER → 2024-04-15 | Outpatient (CLI) | payer MEDICARE ==
--- NOTE | 2024-04-15 17:53 | CA ---
Transthoracic Echo Report Name: Wyatt Felton Age: 74 Gender: M : 1950 Exam Date: 04/15/2024 14:21 Exam Location: [facility] Ht (in): 70 Wt (lb): 245 Ordering Physician: Camille Banks DO Attending/Referring Phys: Libra Na[facility] [employer] Dea Pham, MELODY Procedure CPT: Indications: R06.02 SOB Cardiac Hx: Technical Quality: Good Contrast 1: Total Dose (mL): Contrast 2: Total Dose (mL): MEASUREMENTS (Male / Female) Normal Values 2D ECHO LV Diastolic Diameter PLAX 5.0 cm 4.2 - 5.9 / 3.9 - 5.3 cm LV Systolic Diameter PLAX 3.1 cm IVS Diastolic Thickness 1.2 cm 0.6 - 1.0 / 0.6 - 0.9 cm LVPW Diastolic Thickness 1.3 cm 0.6 - 1.0 / 0.6 - 0.9 cm LV Relative Wall Thickness 0.5 RV Internal Dim ED PLAX 3.5 cm LA Systolic Diameter LX 4.2 cm 3.0 - 4.0 / 2.7 - 3.8 cm LV Diastolic Volume MOD BP 96.1 cm??? 67 - 155 / 56 - 104 cm??? LV Systolic Volume MOD BP 37.5 cm??? 22 - 58 / 19 - 49 cm??? LV Ejection Fraction MOD BP 60.9 % >= 55 % LV Cardiac Index MOD BP 1350.9 cm???/min???m??? LV Diastolic Volume MOD 4C 110.5 cm??? LV Systolic Volume MOD 4C 37.4 cm??? LV Ejection Fraction MOD 4C 66.2 % LV Cardiac Index MOD 4C 1687.1 cm???/min???m??? LV Diastolic Length 4C 8.5 cm LV Systolic Length 4C 7.1 cm LV Diastolic Volume MOD 2C 83.3 cm??? LV Systolic Volume MOD 2C 38.5 cm??? LV Ejection Fraction MOD 2C 53.8 % LV Cardiac Index MOD 2C 1035.1 cm???/min???m??? LV Diastolic Length 2C 8.0 cm LV Systolic Length 2C 7.0 cm LA Volume 53.3 cm??? 18 - 58 / 22 - 52 cm??? LA Volume Index 22.4 cm???/m??? 16 - 28 cm???/m??? M-MODE Aortic Root Diameter MM 3.8 cm AV Cusp Separation MM 2.5 cm DOPPLER AV Peak Velocity 145.0 cm/s AV Peak Gradient 8.4 mmHg AV Mean Velocity 95.0 cm/s AV Mean Gradient 4.0 mmHg AV Velocity Time Integral 32.0 cm AI Peak Velocity 275.2 cm/s AI Peak Gradient 30.3 mmHg AI Pressure Half Time 1133.0 ms MV Area PHT 1.8 cm??? Mitral E Point Velocity 77.0 cm/s Mitral A Point Velocity 104.9 cm/s Mitral E to A Ratio 0.7 MV Deceleration Time 432.3 ms TR Peak Velocity 178.4 cm/s TR Peak Gradient 12.7 mmHg Right Ventricular Systolic Press 17.7 mmHg FINDINGS Left Ventricle Left ventricular ejection fraction is estimated at 55-60 %. Left ventricular cavity size normal. Mildly increased left ventricular wall thickness. . No obvious regional wall motion abnormalities. Right Ventricle Mild right ventricular dilatation. Right ventricular systolic pressure within normal limits. Right Atrium Normal right atrial size. No right atrial thrombus or mass seen. Left Atrium Mildly increased left atrial diameter. No left atrial thrombus or mass present. Mitral Valve Structurally normal mitral valve. No mitral stenosis, or prolapse.mild mitral regurgitation. Aortic Valve Trileaflet aortic valve. No aortic stenosis. Mild aortic regurgitation.aortic valve sclerosis. Tricuspid Valve Structurally normal tricuspid valve. mild tricuspid regurgitation. Pulmonic Valve Structurally normal pulmonic valve. Trace pulmonic regurgitation. Pericardium No pericardial or pleural effusion. Aorta Mild aortic dilatation at the level of the sinuses of valsalva 38 mm CONCLUSIONS 1. Normal left ventricular size and systolic function 2. Mild mitral, aortic and tricuspid regurgitation with no evidence of pulmonary hypertension Previewed by: Dr. Renetta Cortes MD (Electronically Signed) Final Date: 15 April 2024 17:52
== END | disposition home or self-care (01) ==
LOC: RADECHMAIN 13:40
PROVIDERS: ATTEND Family Medicine
DX: I08.1 Rheumatic disorders of both mitral and tricuspid valves (principal)
CPT/HCPCS: 93306